=== PATIENT | female | born 1950 | race Two or more races ===

== ENCOUNTER 2021-11-25 05:54 | Emergency (ER) | payer OTHER ==
[~2021-11-25] VITALS: Ht 157.5 cm; Wt 100.7 kg
[2021-11-25] MEDS ORDERED: LOTREL 10-20 M1 EACH (06:15)
== END 2021-11-25 11:40 | disposition home or self-care (01) ==
LOC: ER 05:54
DX: M54.9 Dorsalgia, unspecified (principal); R10.84 Generalized abdominal pain; R31.9 Hematuria, unspecified; N28.1 Cyst of kidney, acquired; N20.0 Calculus of kidney

== ENCOUNTER 2022-02-02 08:32 | Day surgery (SDC) | payer OTHER ==
[~2022-02-02 08:32] MED LIST: CRESTOR20 MG PO; HYDROCHL PO; KLOR-CON M1010 MEQ PO; LOTREL 10-20 M1 EACH
== END 2022-02-02 15:20 | disposition home or self-care (01) ==
LOC: CIR.AMB 08:32
PROVIDERS: ATTEND Urology
DX: N20.1 Calculus of ureter (principal); Z88.0 Allergy status to penicillin; Z88.8 Allergy status to other drugs, medicaments and biological substances; I10 Essential (primary) hypertension; M19.90 Unspecified osteoarthritis, unspecified site; E66.9 Obesity, unspecified; E78.5 Hyperlipidemia, unspecified; Z20.822 Contact with and (suspected) exposure to COVID-19